=== PATIENT | female | born 1965 | race Caucasian/White ===

== ENCOUNTER 2020-07-06 06:34 | Emergency (ER) | payer BC, MEDICAID ==
[~2020-07-06] VITALS: Ht 165.1 cm; Wt 98.6 kg
[2020-07-06 07:51] LABS: ALANINE AMINOTRANSFERASE 21 U/L (12-78); ALBUMIN 3.5 G/DL (3.4-5.0); ALBUMIN/GLOBULIN RATIO 0.9 (1.1-1.5); ALKALINE PHOSPHATASE 72 IU/L (46-116); ANION GAP 7 (8-16); ASPARTATE AMINO TRANSFERASE 12 U/L (10-37); BILIRUBIN,TOTAL 0.5 MG/DL (0.1-1.0); BLOOD UREA NITROGEN 23 MG/DL (7-18); BUN/CREATININE RATIO 22.1 (6.6-38.0); CALCIUM 8.8 MG/DL (8.5-10.1); CHLORIDE 104 MMOL/L (99-107); CREATININE 1.04 MG/DL (0.40-0.90); GLUCOSE 94 MG/DL (70-104); LIPASE 136 U/L (73-393); SODIUM 140 MMOL/L (135-145); TOTAL PROTEIN 7.4 G/DL (6.4-8.2); eGFR 55 ML/MIN
[2020-07-06] MEDS ORDERED: morphine 4 MG/ML inj SYRINge IV ONE (07:55)
[2020-07-06] MEDS ORDERED: ondansetron/PF 4mg/2ml inj IV ONE (07:55)
[2020-07-06 08:07] LABS: BASOPHILS % (AUTO) 0.7 % (0-1); EOSINOPHILS # (AUTO) 0.2 X10'3 (0-0.9); HEMATOCRIT 35.9 % (35.0-45.0); HEMOGLOBIN 11.9 g/dl (12.0-16.0); LYMPHOCYTES # (AUTO) 1.3 X10'3 (1.1-4.8); LYMPHOCYTES % (AUTO) 21.3 % (21-51); MEAN CORPUSCULAR HEMOGLOBIN 29.4 PG (27.0-31.0); MEAN CORPUSCULAR HGB CONC 33.3 g/dL (33.0-36.5); MEAN CORPUSCULAR VOLUME 88.3 FL (78-98); MEAN PLATELET VOLUME 8.4 FL (7.4-10.4); MONOCYTES # (AUTO) 0.5 X10'3 (0-0.9); MONOCYTES % (AUTO) 8.1 % (2-12); NEUTROPHILS # (AUTO) 4.1 X10'3 (1.8-7.7); NEUTROPHILS % (AUTO) 66.9 % (42-75); PLATELET COUNT 226 X10'3 (140-440); RED BLOOD COUNT 4.06 X10'6 (4.20-5.60); RED CELL DISTRIBUTION WIDTH 15.2 % (11.5-14.5); WHITE BLOOD COUNT 6.2 X10'3 (4.5-11.0)
[2020-07-06 08:23] LABS: URINE HCG NEGATIVE (NEG)
[2020-07-06 08:30] LABS: CLARITY,URINE CLEAR (Clear); COLOR,URINE YELLOW (Yellow); GLUCOSE, URINE NEGATIVE (Neg); KETONES,URINE NEGATIVE (Neg); LEUKOCYTE ESTERASE ,URINE NEGATIVE (Neg); NITRITES, URINE NEGATIVE (Neg); OCCULT BLOOD,URINE NEGATIVE (Neg); PROTEIN,URINE NEGATIVE (Neg); UROBILINOGEN,URINE 0.2 E.U/dL (0.2-1.0)
[2020-07-06 08:31] LABS: UA COLLECTION TYPE CLN CATCH MIDSTREAM
[2020-07-06] MEDS ORDERED: LEVO500T89 PO (09:27)
[2020-07-06] MEDS ORDERED: METR-159 PO (09:27)
[2020-07-06 09:46] VITALS: BP 120/75
== END 2020-07-06 09:51 | disposition home or self-care (01) ==
LOC: ER 06:35
DX: K57.92 Diverticulitis of intestine, part unspecified, without perforation or abscess without bleeding (principal); I10 Essential (primary) hypertension; K21.9 Gastro-esophageal reflux disease without esophagitis; E03.9 Hypothyroidism, unspecified; Z90.710 Acquired absence of both cervix and uterus; Z98.51 Tubal ligation status; Z98.890 Other specified postprocedural states; Z88.0 Allergy status to penicillin; Z88.2 Allergy status to sulfonamides; Z79.899 Other long term (current) drug therapy
CPT/HCPCS: 36415; 74176; 80053; 81003; 81025; 83690; 85025; 96374; 96375; 99284; J2270; J2405

== ENCOUNTER 2023-04-17 17:53 | Emergency (ER) | payer BC ==
[~2023-04-17] VITALS: Ht 165.1 cm; Wt 88.1 kg
[~2023-04-17 17:53] MED LIST: ASPI81TA52 PO; FLUT16SP13 BOTHNARES; LACT1CAP65 PO; LEVO112T5 PO; LISI10TA27 PO; LISI20TA28 PO; SUPER C PO; VITA-288 PO
[2023-04-17 18:21] LABS: BASOPHILS # (AUTO) 0.1 X10'3 (0-0.2); BASOPHILS % (AUTO) 0.5 % (0-1); EOSINOPHILS # (AUTO) 0.4 X10'3 (0-0.9); EOSINOPHILS % (AUTO) 3.4 % (0-6); HEMATOCRIT 38.6 % (35.0-45.0); HEMOGLOBIN 12.8 g/dl (12.0-16.0); LYMPHOCYTES % (AUTO) 16.7 % (21-51); MEAN CORPUSCULAR HEMOGLOBIN 28.1 PG (27.0-31.0); MEAN CORPUSCULAR HGB CONC 33.3 g/dL (33.0-36.5); MEAN CORPUSCULAR VOLUME 84.5 FL (78-98); MONOCYTES # (AUTO) 1.1 X10'3 (0-0.9); MONOCYTES % (AUTO) 9.5 % (2-12); NEUTROPHILS # (AUTO) 8.2 X10'3 (1.8-7.7); NEUTROPHILS % (AUTO) 69.9 % (42-75); PLATELET COUNT 437 X10'3 (140-440); RED BLOOD COUNT 4.56 X10'6 (4.20-5.60); RED CELL DISTRIBUTION WIDTH 14.2 % (11.5-14.5); WHITE BLOOD COUNT 11.7 X10'3 (4.5-11.0)
[2023-04-17 18:26] LABS: URINE HCG NEGATIVE (NEG)
[2023-04-17 18:35] LABS: ALANINE AMINOTRANSFERASE 28 U/L (12-78); ALBUMIN 3.3 G/DL (3.4-5.0); ALBUMIN/GLOBULIN RATIO 0.7 (1.1-1.5); ALKALINE PHOSPHATASE 78 IU/L (46-116); ANION GAP 12 (8-16); ASPARTATE AMINO TRANSFERASE 19 U/L (10-37); BILIRUBIN,TOTAL 0.5 MG/DL (0.1-1.0); BLOOD UREA NITROGEN 11 MG/DL (7-18); BUN/CREATININE RATIO 10.6 (10.0-20.0); CALCIUM 9.6 MG/DL (8.5-10.1); CHLORIDE 98 MMOL/L (99-107); CREATININE 1.04 MG/DL (0.40-0.90); GLUCOSE 114 MG/DL (70-104); LIPASE 142 U/L (73-393); SODIUM 136 MMOL/L (135-145); TOTAL CARBON DIOXIDE 26.4 MMOL/L (24-32); TOTAL PROTEIN 8.1 G/DL (6.4-8.2); eGFR 54 ML/MIN
[2023-04-17 18:42] LABS: CLARITY,URINE CLEAR (Clear); COLOR,URINE YELLOW (Yellow); GLUCOSE, URINE NEGATIVE (Neg); KETONES,URINE NEGATIVE (Neg); LEUKOCYTE ESTERASE ,URINE NEGATIVE (Neg); NITRITES, URINE NEGATIVE (Neg); OCCULT BLOOD,URINE NEGATIVE (Neg); PH,URINE 6.5 (4.8-8.0); PROTEIN,URINE NEGATIVE (Neg); UROBILINOGEN,URINE 0.2 E.U/dL (0.2-1.0)
[2023-04-17 18:44] LABS: UA COLLECTION TYPE CLN CATCH MIDSTREAM
--- NOTE | 2023-04-17 19:00 | NUR ---
PT BROUGHT BACK TO TRIAGE TO [facility] VS D/T PT REPORTING FEELING SWEATY & LIGHTHEADED. ABD WOUND IS RED W/ SEROSANGOUS DRAINAGE.
[2023-04-17] MEDS ORDERED: rifampin 300mg capsule PO ONE (20:35)
[2023-04-17] MEDS ORDERED: VANCOMYCIN 1,500MG inj. 1,500 MG in normal saline 500ml IV soln 300 ML IV SCH (20:35)
[2023-04-17] MEDS ORDERED: rifampin 300mg capsule PO SCH (20:35)
[2023-04-17] MEDS ORDERED: normal saline 1000ML IV soln IVB ONE (20:35)
[2023-04-17] MEDS ORDERED: VANCOMYCIN 1,500MG inj. 1,500 MG in normal saline 500ml IV soln 300 ML IV ONE (20:36)
[2023-04-17] MEDS ORDERED: iohexol 300mg/ml 100ml inj. ONE (20:48)
--- NOTE | 2023-04-17 21:01 | NUR ---
assumed care from marv castro. pt moved from rm [address] at bedside.
[2023-04-17 23:59] VITALS: BP 104/67
== END 2023-04-17 23:52 | disposition home or self-care (01) ==
LOC: ER 17:54
DX: L76.34 Postprocedural seroma of skin and subcutaneous tissue following other procedure (principal); N73.2 Unspecified parametritis and pelvic cellulitis; I10 Essential (primary) hypertension; K21.9 Gastro-esophageal reflux disease without esophagitis; E03.9 Hypothyroidism, unspecified; Z88.8 Allergy status to other drugs, medicaments and biological substances; Z88.0 Allergy status to penicillin; Z88.2 Allergy status to sulfonamides; Z90.710 Acquired absence of both cervix and uterus; Z98.51 Tubal ligation status; Y83.8 Other surgical procedures as the cause of abnormal reaction of the patient, or of later complication, without mention of misadventure at the time of the procedure; Y92.89 Other specified places as the place of occurrence of the external cause
CPT/HCPCS: 36415; 74177; 80053; 81003; 81025; 83605; 83690; 84145; 85025; 87040; 96365; 96366; 99285; J3370; J3490; J7030; J7040; Q9967

== ENCOUNTER 2023-05-05 10:09 | Emergency (ER) | payer BC ==
[~2023-05-05] VITALS: Ht 162.6 cm; Wt 82.8 kg
[~2023-05-05 10:09] MED LIST changes: -ASPI81TA52 PO
[2023-05-05] MEDS ORDERED: CefTRIAXone 2gm/D5W 50ml BAG 50 ML IV ONE (10:35)
[2023-05-05] MEDS ORDERED: vancomycin/NS 1 GM ADD-VANTAGE 250 ML IV ONE (10:35)
[2023-05-05] MEDS ORDERED: normal saline 1000ML IV soln IV ONE (10:35)
[2023-05-05 10:55] LABS: URINE HCG NEGATIVE (NEG)
[2023-05-05] MEDS ORDERED: morphine 4 MG/ML inj SYRINge IV ONE (10:55)
[2023-05-05] MEDS ORDERED: ondansetron/PF 4mg/2ml inj IV ONE (10:55)
[2023-05-05 10:57] LABS: BASOPHILS % (AUTO) 0.6 % (0-1); EOSINOPHILS # (AUTO) 0.5 X10'3 (0-0.9); EOSINOPHILS % (AUTO) 7.6 % (0-6); HEMOGLOBIN 13.2 g/dl (12.0-16.0); LYMPHOCYTES # (AUTO) 1.5 X10'3 (1.1-4.8); LYMPHOCYTES % (AUTO) 24.4 % (21-51); MEAN CORPUSCULAR HGB CONC 32.9 g/dL (33.0-36.5); MEAN CORPUSCULAR VOLUME 85.1 FL (78-98); MEAN PLATELET VOLUME 8.5 FL (7.4-10.4); MONOCYTES # (AUTO) 0.5 X10'3 (0-0.9); MONOCYTES % (AUTO) 8.2 % (2-12); NEUTROPHILS # (AUTO) 3.5 X10'3 (1.8-7.7); NEUTROPHILS % (AUTO) 59.2 % (42-75); PLATELET COUNT 266 X10'3 (140-440); RED CELL DISTRIBUTION WIDTH 14.9 % (11.5-14.5)
[2023-05-05 11:00] LABS: CLARITY,URINE CLEAR (Clear); COLOR,URINE STRAW (Yellow); GLUCOSE, URINE NEGATIVE (Neg); KETONES,URINE NEGATIVE (Neg); LEUKOCYTE ESTERASE ,URINE NEGATIVE (Neg); NITRITES, URINE NEGATIVE (Neg); OCCULT BLOOD,URINE NEGATIVE (Neg); PH,URINE 6.5 (4.8-8.0); PROTEIN,URINE NEGATIVE (Neg); UROBILINOGEN,URINE 0.2 E.U/dL (0.2-1.0)
[2023-05-05 11:06] LABS: ALANINE AMINOTRANSFERASE 21 U/L (12-78); ALBUMIN 3.8 G/DL (3.4-5.0); ALBUMIN/GLOBULIN RATIO 0.9 (1.1-1.5); ALKALINE PHOSPHATASE 89 IU/L (46-116); ANION GAP 11 (8-16); ASPARTATE AMINO TRANSFERASE 14 U/L (10-37); BILIRUBIN,TOTAL 0.4 MG/DL (0.1-1.0); BLOOD UREA NITROGEN 13 MG/DL (7-18); BUN/CREATININE RATIO 13.8 (10.0-20.0); CALCIUM 9.4 MG/DL (8.5-10.1); CHLORIDE 103 MMOL/L (99-107); CREATININE 0.94 MG/DL (0.40-0.90); GLUCOSE 101 MG/DL (70-104); LIPASE 126 U/L (73-393); SODIUM 140 MMOL/L (135-145); TOTAL CARBON DIOXIDE 26.4 MMOL/L (24-32); TOTAL PROTEIN 8.2 G/DL (6.4-8.2); eGFR 61 ML/MIN
[2023-05-05 11:16] LABS: UA COLLECTION TYPE CLN CATCH MIDSTREAM
[2023-05-05 11:29] VITALS: BP 152/87
--- NOTE | 2023-05-05 12:00 | NUR ---
FAXED PT REFERRAL FOR WOUND CARE ALONG W/ PROVIDER NOTES AND DOCUMENTATION.
== END 2023-05-05 13:53 | disposition home or self-care (01) ==
LOC: ER 10:10
DX: T81.31XA Disruption of external operation (surgical) wound, not elsewhere classified, initial encounter (principal); I10 Essential (primary) hypertension; E03.9 Hypothyroidism, unspecified; Z87.19 Personal history of other diseases of the digestive system; Z90.710 Acquired absence of both cervix and uterus; Z98.51 Tubal ligation status; Z79.899 Other long term (current) drug therapy; Z88.8 Allergy status to other drugs, medicaments and biological substances; Z88.0 Allergy status to penicillin; Z88.1 Allergy status to other antibiotic agents; Z88.2 Allergy status to sulfonamides; Y83.8 Other surgical procedures as the cause of abnormal reaction of the patient, or of later complication, without mention of misadventure at the time of the procedure; Y92.89 Other specified places as the place of occurrence of the external cause
CPT/HCPCS: 36415; 80053; 81003; 81025; 83605; 83690; 84145; 85025; 87040; 87070; 96365; 96366; 96368; 96375; 99284; J0696; J2270; J2405; J3370; J7030; 87077; 87186

== ENCOUNTER 2023-06-12 05:31 | Day surgery (SDC) | payer BC ==
[2023-06-06 14:48] LABS: BILIRUBIN,URINE NEGATIVE (Neg); CLARITY,URINE CLEAR (Clear); COLOR,URINE YELLOW (Yellow); GLUCOSE, URINE NEGATIVE (Neg); KETONES,URINE NEGATIVE (Neg); LEUKOCYTE ESTERASE ,URINE SMALL (Neg); NITRITES, URINE NEGATIVE (Neg); OCCULT BLOOD,URINE NEGATIVE (Neg); PROTEIN,URINE NEGATIVE (Neg); UROBILINOGEN,URINE 0.2 E.U/dL (0.2-1.0)
[2023-06-06 14:49] LABS: UA COLLECTION TYPE CLN CATCH MIDSTREAM
[2023-06-06 14:51] LABS: BASOPHILS % (AUTO) 0.5 % (0-1); EOSINOPHILS # (AUTO) 0.2 X10'3 (0-0.9); EOSINOPHILS % (AUTO) 2.8 % (0-6); LYMPHOCYTES # (AUTO) 1.9 X10'3 (1.1-4.8); LYMPHOCYTES % (AUTO) 23.9 % (21-51); MEAN CORPUSCULAR HEMOGLOBIN 28.3 PG (27.0-31.0); MEAN CORPUSCULAR HGB CONC 33.1 g/dL (33.0-36.5); MEAN CORPUSCULAR VOLUME 85.6 FL (78-98); MEAN PLATELET VOLUME 8.1 FL (7.4-10.4); MONOCYTES # (AUTO) 0.5 X10'3 (0-0.9); MONOCYTES % (AUTO) 6.7 % (2-12); NEUTROPHILS # (AUTO) 5.3 X10'3 (1.8-7.7); NEUTROPHILS % (AUTO) 66.1 % (42-75); PRE OP HEMATOCRIT 39.4 % (35.0-45.0); PRE OP PLATELET COUNT 331 X10'3 (140-440); PRE OP WHITE BLOOD COUNT 8.1 10'3 (4.8-10.8); RED CELL DISTRIBUTION WIDTH 16.5 % (11.5-14.5)
[2023-06-06 14:56] LABS: BACTERIA,URINE 1+ /HPF (Neg); MUCUS STRANDS NONE SEEN /LPF (Neg); RBC,URINE 0-2 /HPF (0-2); SQUAMOUS EPITHELIAL CELL,UR MODERATE /LPF (FEW)
[2023-06-06 14:59] LABS: ALBUMIN 4.1 G/DL (3.4-5.0); ALKALINE PHOSPHATASE 100 IU/L (46-116); BLOOD UREA NITROGEN 15 MG/DL (7-18); BUN/CREATININE RATIO 13.3 (10.0-20.0); CALCIUM 9.6 MG/DL (8.5-10.1); CHLORIDE 102 MMOL/L (99-107); CREATININE 1.13 MG/DL (0.40-0.90); PRE OP ALT 22 U/L (30-65); PRE OP ANION GAP 8 (8-16); PRE OP AST 15 U/L (10-37); PRE OP BILIRUB, TOTAL 0.4 MG/DL (0.0-1.0); PRE OP GLUCOSE 103 MG/DL (70-104); PRE OP SODIUM 138 MMOL/L (135-145); TOTAL CARBON DIOXIDE 28.4 MMOL/L (24-32); TOTAL PROTEIN 8.4 G/DL (6.4-8.2); eGFR 49 ML/MIN
--- NOTE | 2023-06-11 13:00 | NUR ---
PT SURGERY CANCELLED D/T NEED OF OR TIME FOR EMERGENCY CASES, PT MADE AWARE OF SITUATION AND INSTRUCTED TO CALL DR'S OFFICE TO RESCHEDULE SX, PT NEEDED FRESH PACKING TO ABD WOUND - DONE PER STANDING OUTPATIENT WOUND CARE ORDERS AFTER SPEAKING WITH OUR OUTPT W/C SERVICES. PT TOLERATED WELL, MINIMAL BLEEDING NOTED, WOUND REDRESSED, PT DRESSED AND WALKED WITH TO VEHICLE FOR TRANSPORT HOME.
[~2023-06-12] VITALS: Ht 165.1 cm; Wt 90.2 kg
[2023-06-12] VITALS (13 sets, daily range): BP systolic 109–129; BP diastolic 67–89; PULSE 64–82; RESP 9–18; TEMP 98.5; O2SAT 94–100
[~2023-06-12 05:31] MED LIST changes: -FLUT16SP13 BOTHNARES; +GENTAMICIN IV ONE; -LACT1CAP65 PO; -LISI20TA28 PO; +LORA10TA7 PO; +NORMAL SALINE IV ONE; +OMEP40CA21 PO; +ROSU10TA28; -SUPER C PO; +TRIA15CR61 TOP; -VITA-288 PO; +clindamycin-Cleocin 900mg/D5W 50 ML IV ONE; +famotidine 20mg tablet PO ONE; +ringers solution, lacted 1,000 ML IV SCH
[2023-06-12 06:09] LABS: BILIRUBIN,URINE NEGATIVE (Neg); CLARITY,URINE CLOUDY (Clear); COLOR,URINE YELLOW (Yellow); GLUCOSE, URINE NEGATIVE (Neg); KETONES,URINE NEGATIVE (Neg); LEUKOCYTE ESTERASE ,URINE SMALL (Neg); NITRITES, URINE NEGATIVE (Neg); OCCULT BLOOD,URINE NEGATIVE (Neg); PROTEIN,URINE NEGATIVE (Neg); UROBILINOGEN,URINE 0.2 E.U/dL (0.2-1.0)
[2023-06-12 06:11] LABS: UA COLLECTION TYPE CLN CATCH MIDSTREAM
[2023-06-12 06:18] LABS: TRANSITIONAL EPI CELLS,URINE FEW /HPF; WBC CLUMPS,URINE FEW /HPF (NEGATIVE)
[2023-06-12 06:20] LABS: BACTERIA,URINE FEW /HPF (Neg)
[2023-06-12 06:21] LABS: HYALINE CASTS 0-3 /LPF (NEGATIVE); RBC,URINE 0-2 /HPF (0-2); SQUAMOUS EPITHELIAL CELL,UR MANY /LPF (FEW)
[2023-06-12] MEDS ORDERED: fentaNYL/PF 50MCG/1 ML 2ML syringe ONE ×2 (06:38→07:21)
[2023-06-12] MEDS ORDERED: midazolam 1 mg/ML 2ml injection ONE ×2 (06:40→07:21)
[2023-06-12] MEDS ORDERED: LIDOcaine 2% (20mg/ml) 5ml vial ONE (06:41)
[2023-06-12] MEDS ORDERED: propofol inj 20 ML IV ONE (06:41)
[2023-06-12] MEDS ORDERED: dexamethasone sod phosphate 4mg/ml inj. ONE (06:41)
[2023-06-12] MEDS ORDERED: ondansetron/PF 4mg/2ml inj ONE (06:42)
[2023-06-12] MEDS ORDERED: rocuronium 10mg/ml inj IV ONE (06:42)
[2023-06-12] MEDS ORDERED: morphine 4 MG/ML inj SYRINge IV PRN (06:50)
[2023-06-12] MEDS ORDERED: ondansetron/PF 4mg/2ml inj IV PRN (06:50)
[2023-06-12] MEDS ORDERED: hydrALAZINE 20mg/ml inj. IV PRN (06:50)
[2023-06-12] MEDS ORDERED: fentaNYL/PF 50MCG/1 ML 2ML syringe IV PRN (06:50)
[2023-06-12] MEDS ORDERED: morphine 2 MG/ML inj. syringe IV PRN (06:50)
[2023-06-12] MEDS ORDERED: ringers solution, lacted 1,000 ML IV SCH (06:50)
[2023-06-12] MEDS ORDERED: labetalol 20mg/4ml (5mg/ml) syringe IV PRN (06:50)
[2023-06-12] MEDS ORDERED: BUPIVAcaine/PF 2.5 mg/ml (0.25%) 30ml vial ONE (06:53)
[2023-06-12] MEDS ORDERED: sevoflurane 250ml liquid IH ONE (07:10)
[2023-06-12 07:18] LABS: BILIRUBIN,URINE NEGATIVE (Neg); CLARITY,URINE CLOUDY (Clear); COLOR,URINE STRAW (Yellow); GLUCOSE, URINE NEGATIVE (Neg); KETONES,URINE NEGATIVE (Neg); LEUKOCYTE ESTERASE ,URINE NEGATIVE (Neg); NITRITES, URINE NEGATIVE (Neg); OCCULT BLOOD,URINE NEGATIVE (Neg); PROTEIN,URINE NEGATIVE (Neg); UROBILINOGEN,URINE 0.2 E.U/dL (0.2-1.0)
[2023-06-12] MEDS ORDERED: neostigmine methylsulfate 1 MG/ML 10ml vial ONE (07:21)
[2023-06-12] MEDS ORDERED: glycopyrrolate 0.2mg/ml inj ONE (07:21)
[2023-06-12] MEDS ORDERED: labetalol 20mg/4ml (5mg/ml) syringe IV ONE (07:22)
[2023-06-12 07:32] LABS: UA COLLECTION TYPE CLN CATCH MIDSTREAM
[2023-06-12 07:37] LABS: SQUAMOUS EPITHELIAL CELL,UR MODERATE /LPF (FEW); TRANSITIONAL EPI CELLS,URINE FEW /HPF
[2023-06-12 07:38] LABS: BACTERIA,URINE FEW /HPF (Neg); RBC,URINE 0-2 /HPF (0-2)
[2023-06-12 07:40] LABS: HYALINE CASTS 0-3 /LPF (NEGATIVE)
[2023-06-12] MEDS ORDERED: BUPIVAcaine/PF 2.5 mg/ml (0.25%) 30ml vial IJ ONE (07:56)
[2023-06-12] MEDS: fentaNYL/PF 50MCG/1 ML 2ML syringe IV PRN ×2 (08:16→08:35)
--- NOTE | 2023-06-12 09:02 | NUR ---
Received from OR via [facility], accompanied by Anesthesiologist [email or web address] and report given by Anesthesiolgist. Pt sleepy but responsiveness. VS stable. Rcvd on 100% fio2. Abdominal pain 08/05 adminstered Fentanyl x2 50mcg pain brought to 04/05. Will continue to monitor pain. No n/v. PIV right wrist LR running at 100cc/hr.
[2023-06-12] MEDS ORDERED: HYDROcodone/acetaminophen 10/325mg tab PO ONE (09:35)
[2023-06-12] MEDS ORDERED: DOXYCYCLINE PO (10:00)
== END 2023-06-12 09:46 | disposition home or self-care (01) ==
LOC: PAS 05:31
PROVIDERS: ATTEND Surgery
DX: T81.89XA Other complications of procedures, not elsewhere classified, initial encounter (principal); E03.9 Hypothyroidism, unspecified; F32.A Depression, unspecified; K21.9 Gastro-esophageal reflux disease without esophagitis; M06.9 Rheumatoid arthritis, unspecified; E66.9 Obesity, unspecified; Z68.36 Body mass index [BMI] 36.0-36.9, adult; E06.3 Autoimmune thyroiditis; G47.30 Sleep apnea, unspecified; M19.90 Unspecified osteoarthritis, unspecified site; I12.9 Hypertensive chronic kidney disease with stage 1 through stage 4 chronic kidney disease, or unspecified chronic kidney disease; N18.9 Chronic kidney disease, unspecified; Z86.16 Personal history of COVID-19; Z88.0 Allergy status to penicillin; Z88.1 Allergy status to other antibiotic agents; Z88.2 Allergy status to sulfonamides; Z88.8 Allergy status to other drugs, medicaments and biological substances; Z98.51 Tubal ligation status; Z90.49 Acquired absence of other specified parts of digestive tract; Z90.710 Acquired absence of both cervix and uterus; Z98.890 Other specified postprocedural states; Z79.899 Other long term (current) drug therapy; Z80.3 Family history of malignant neoplasm of breast; Y83.8 Other surgical procedures as the cause of abnormal reaction of the patient, or of later complication, without mention of misadventure at the time of the procedure; Y92.89 Other specified places as the place of occurrence of the external cause
CPT/HCPCS: 13160; 36415; 80053; 81001; 82948; 85025; 87077; 87088; J1100; J1580; J2250; J2270; J2405; J2704; J2710; J3010; J3490; J7030; J7120; Z7506; Z7512; A4215; A4618; A4620; A6449; A7000

== ENCOUNTER 2024-10-04 12:40 | Inpatient (IN) | payer BC ==
[~2024-10-04] VITALS: Ht 162.6 cm; Wt 97.7 kg
[~2024-10-04 12:40] MED LIST changes: +DOXYCYCLINE PO; -GENTAMICIN IV ONE; -NORMAL SALINE IV ONE; -ROSU10TA28; +ROSU10TA72; -clindamycin-Cleocin 900mg/D5W 50 ML IV ONE; -famotidine 20mg tablet PO ONE; -ringers solution, lacted 1,000 ML IV SCH
[2024-10-04 16:08] LABS: BASOPHILS # (AUTO) 0.1 X10'3 (0-0.2); BASOPHILS % (AUTO) 0.6 % (0-1); EOSINOPHILS # (AUTO) 0.8 X10'3 (0-0.9); EOSINOPHILS % (AUTO) 7.8 % (0-6); HEMATOCRIT 39.7 % (35.0-45.0); HEMOGLOBIN 13.2 g/dl (12.0-16.0); LYMPHOCYTES # (AUTO) 2.8 X10'3 (1.1-4.8); LYMPHOCYTES % (AUTO) 27.9 % (21-51); MEAN CORPUSCULAR HEMOGLOBIN 28.2 PG (27.0-31.0); MEAN CORPUSCULAR HGB CONC 33.1 g/dL (33.0-36.5); MONOCYTES # (AUTO) 0.9 X10'3 (0-0.9); MONOCYTES % (AUTO) 9.4 % (2-12); NEUTROPHILS # (AUTO) 5.4 X10'3 (1.8-7.7); NEUTROPHILS % (AUTO) 54.3 % (42-75); PLATELET COUNT 251 X10'3 (140-440); RED BLOOD COUNT 4.67 X10'6 (4.20-5.60); RED CELL DISTRIBUTION WIDTH 15.4 % (11.5-14.5)
[2024-10-04 16:10] LABS: BILIRUBIN,URINE NEGATIVE (Neg); CLARITY,URINE CLEAR (Clear); COLOR,URINE YELLOW (Yellow); GLUCOSE, URINE NEGATIVE (Neg); KETONES,URINE NEGATIVE (Neg); LEUKOCYTE ESTERASE ,URINE NEGATIVE (Neg); NITRITES, URINE NEGATIVE (Neg); OCCULT BLOOD,URINE NEGATIVE (Neg); PROTEIN,URINE NEGATIVE (Neg); UROBILINOGEN,URINE 0.2 E.U/dL (0.2-1.0)
[2024-10-04] MEDS: normal saline 1000ML IV soln IV ONE (16:10)
[2024-10-04] MEDS: CefTRIAXone 2gm/D5W 50ml BAG 50 ML IV ONE (16:10)
[2024-10-04] MEDS: acetaminophen 1,000mg/100ml IV 100 ML IV ONE (16:10)
[2024-10-04] MEDS: VANCOMYCIN 1GM 200ML H20 (PEG) 200 ML IV ONE (16:10)
[2024-10-04 16:14] LABS: UA COLLECTION TYPE VOIDED
[2024-10-04 16:17] LABS: ALBUMIN 4.1 G/DL (3.4-5.0); ALKALINE PHOSPHATASE 91 IU/L (46-116); ANION GAP 8 (8-16); ASPARTATE AMINO TRANSFERASE 14 U/L (10-37); BILIRUBIN,TOTAL 0.4 MG/DL (0.1-1.0); BLOOD UREA NITROGEN 19 MG/DL (7-18); BUN/CREATININE RATIO 19.2 (10.0-20.0); CALCIUM 9.6 MG/DL (8.5-10.1); CHLORIDE 105 MMOL/L (99-107); CREATININE 0.99 MG/DL (0.40-0.90); GLUCOSE 95 MG/DL (70-104); MAGNESIUM 1.9 MG/DL (1.5-2.4); SODIUM 139 MMOL/L (135-145); TOTAL CARBON DIOXIDE 25.6 MMOL/L (24-32); TOTAL PROTEIN 8.3 G/DL (6.4-8.2); eCRCL 53 ML/MIN; eGFR 57 ML/MIN
[2024-10-04] MEDS: diphenhydrAMINE 50 mg/ml inj IV ONE (16:18)
[2024-10-04] MEDS ORDERED: iohexol 300mg/ml 100ml inj. ONE (16:23)
[2024-10-04 16:27] LABS: ALANINE AMINOTRANSFERASE 23 U/L (12-78)
[2024-10-04] MEDS ORDERED: magnesium sulf-water 2g/50mL 50 ML IV PRN (18:00)
[2024-10-04] MEDS ORDERED: magnesium Cl slow-release 64mg tablet PO PRN (18:00)
[2024-10-04] MEDS ORDERED: ondansetron/PF 4mg/2ml inj IV PRN (18:00)
[2024-10-04] MEDS ORDERED: potassium Cl 40MEQ/1/2NS 520ml 520 ML IV PRN (18:00)
[2024-10-04] MEDS ORDERED: mag hydrox/Alum hydrox/simeth 30ml oral suspension PO PRN (18:00)
[2024-10-04] MEDS ORDERED: HYDROcodone/acetaminophen 5mg/325mg tablet PO PRN (18:00)
[2024-10-04] MEDS ORDERED: HYDROcodone/acetaminophen 10/325mg tab PO PRN (18:00)
[2024-10-04] MEDS ORDERED: morphine 2 MG/ML inj. syringe IV PRN ×2 (18:00)
[2024-10-04] MEDS ORDERED: potassium Cl 20 mEq SR tablet PO PRN ×2 (18:00)
[2024-10-04] MEDS ORDERED: magnesium sulf-water 4G/100mL 100 ML IV PRN (18:00)
[2024-10-04] MEDS: normal saline 1000ml 1,000 ML IV SCH (18:06)
[2024-10-04] MEDS: pantoprazole 40mg Tablet.DR PO ONE (18:46)
[2024-10-04] MEDS: K and/or MAG REPLACEMENT MC SCH (19:48)
[2024-10-04] MEDS: docusate sod 100mg capsule PO SCH (19:48)
[2024-10-04] MEDS: lactobacillus rhamnosus 10,000 MMU CELLS/CAPSULE PO SCH (20:26)
[2024-10-04] MEDS: enoxaparin 40mg/0.4ml syringe SQ SCH (20:27)
[2024-10-04 20:38] LABS: URINE AMPHETAMINE SCREEN NEGATIVE (Neg); URINE BARBITUATE SCREEN NEGATIVE (Neg); URINE BENZODIAZEPINES SCREEN NEGATIVE (Neg); URINE CANNABINOID SCREEN NEGATIVE (Neg); URINE COCAINE SCREEN NEGATIVE (Neg); URINE METHADONE SCREEN NEGATIVE (Neg); URINE OPIATE SCREEN NEGATIVE (Neg); URINE PHENCYCLIDINE SCREEN NEGATIVE (Neg)
[2024-10-04] MEDS: ciprofloxacin lact 400MG/200ML 200 ML IV SCH (21:19)
[2024-10-05] VITALS (7 sets, daily range): BP systolic 144–167; BP diastolic 71–94; PULSE 71–89; RESP 16–21; TEMP 96.8–98.7; O2SAT 92–98
[2024-10-05 06:09] LABS: BASOPHILS % (AUTO) 0.4 % (0-1); EOSINOPHILS # (AUTO) 0.8 X10'3 (0-0.9); EOSINOPHILS % (AUTO) 11.3 % (0-6); HEMATOCRIT 35.2 % (35.0-45.0); HEMOGLOBIN 11.8 g/dl (12.0-16.0); LYMPHOCYTES % (AUTO) 13.3 % (21-51); MEAN CORPUSCULAR HEMOGLOBIN 28.5 PG (27.0-31.0); MEAN CORPUSCULAR HGB CONC 33.6 g/dL (33.0-36.5); MEAN CORPUSCULAR VOLUME 84.8 FL (78-98); MEAN PLATELET VOLUME 7.7 FL (7.4-10.4); MONOCYTES # (AUTO) 0.8 X10'3 (0-0.9); MONOCYTES % (AUTO) 10.9 % (2-12); NEUTROPHILS # (AUTO) 4.6 X10'3 (1.8-7.7); NEUTROPHILS % (AUTO) 64.1 % (42-75); PLATELET COUNT 186 X10'3 (140-440); RED BLOOD COUNT 4.16 X10'6 (4.20-5.60); RED CELL DISTRIBUTION WIDTH 15.5 % (11.5-14.5); WHITE BLOOD COUNT 7.3 X10'3 (4.5-11.0)
[2024-10-05 06:25] LABS: APTT 27 SECONDS (22-32); INR 1.1 INR
[2024-10-05 06:31] LABS: ALANINE AMINOTRANSFERASE 22 U/L (12-78); ALBUMIN 3.4 G/DL (3.4-5.0); ALBUMIN/GLOBULIN RATIO 0.9 (1.1-1.5); ALKALINE PHOSPHATASE 77 IU/L (46-116); ANION GAP 8 (8-16); ASPARTATE AMINO TRANSFERASE 14 U/L (10-37); BILIRUBIN,TOTAL 0.5 MG/DL (0.1-1.0); BLOOD UREA NITROGEN 15 MG/DL (7-18); BUN/CREATININE RATIO 17.2 (10.0-20.0); CALCIUM 9.3 MG/DL (8.5-10.1); CHLORIDE 105 MMOL/L (99-107); CREATININE 0.87 MG/DL (0.40-0.90); GLUCOSE 97 MG/DL (70-104); MAGNESIUM 1.9 MG/DL (1.5-2.4); POTASSIUM 4.2 MMOL/L (3.5-5.1); SODIUM 140 MMOL/L (135-145); TOTAL CARBON DIOXIDE 27.1 MMOL/L (24-32); TOTAL PROTEIN 7.2 G/DL (6.4-8.2); eCRCL 60 ML/MIN; eGFR 67 ML/MIN
[2024-10-05] MEDS: VANCOMYCIN 1GM 200ML H20 (PEG) 200 ML IV SCH (07:42)
[2024-10-05] MEDS: levoTHYROXINE 125mcg tablet PO SCH (07:46)
[2024-10-05] MEDS: acetaminophen 325mg tablet PO PRN (08:45)
[2024-10-05] MEDS: pantoprazole 40mg Tablet.DR PO SCH (08:46)
[2024-10-05] MEDS: lisinopril 10 MG tablet PO SCH (08:48)
[2024-10-05] MEDS: diphenhydrAMINE 25mg capsule PO PRN (19:15)
[2024-10-05] MEDS: VANCOMYCIN/WATER FOR INJ (PEG) 1.25GM/250 ML IVPB IV SCH (19:16)
[2024-10-05] MEDS: magnesium hydroxide 30ml (MOM) UD suspension PO PRN (20:29)
[2024-10-06 05:51] LABS: BASOPHILS % (AUTO) 0.7 % (0-1); EOSINOPHILS % (AUTO) 19.2 % (0-6); HEMATOCRIT 34.6 % (35.0-45.0); HEMOGLOBIN 11.6 g/dl (12.0-16.0); LYMPHOCYTES # (AUTO) 1.4 X10'3 (1.1-4.8); LYMPHOCYTES % (AUTO) 27.6 % (21-51); MEAN CORPUSCULAR HEMOGLOBIN 28.5 PG (27.0-31.0); MEAN CORPUSCULAR HGB CONC 33.5 g/dL (33.0-36.5); MEAN CORPUSCULAR VOLUME 85.1 FL (78-98); MEAN PLATELET VOLUME 7.7 FL (7.4-10.4); MONOCYTES # (AUTO) 0.5 X10'3 (0-0.9); MONOCYTES % (AUTO) 10.7 % (2-12); NEUTROPHILS # (AUTO) 2.1 X10'3 (1.8-7.7); NEUTROPHILS % (AUTO) 41.8 % (42-75); PLATELET COUNT 185 X10'3 (140-440); RED BLOOD COUNT 4.07 X10'6 (4.20-5.60); RED CELL DISTRIBUTION WIDTH 15.2 % (11.5-14.5); WHITE BLOOD COUNT 5.1 X10'3 (4.5-11.0)
[2024-10-06 06:00] VITALS: BP 161/89; PULSE 70; RESP 16; TEMP 97.2; O2SAT 97
[2024-10-06 06:01] LABS: APTT 27 SECONDS (22-32); INR 1.1 INR; PROTHROMBIN TIME 11.1 SECONDS (9.0-12.0)
[2024-10-06 06:07] LABS: ALANINE AMINOTRANSFERASE 22 U/L (12-78); ALBUMIN 3.4 G/DL (3.4-5.0); ALBUMIN/GLOBULIN RATIO 0.9 (1.1-1.5); ALKALINE PHOSPHATASE 71 IU/L (46-116); ANION GAP 7 (8-16); ASPARTATE AMINO TRANSFERASE 17 U/L (10-37); BILIRUBIN,TOTAL 0.4 MG/DL (0.1-1.0); BLOOD UREA NITROGEN 11 MG/DL (7-18); BUN/CREATININE RATIO 12.2 (10.0-20.0); CALCIUM 8.9 MG/DL (8.5-10.1); CHLORIDE 109 MMOL/L (99-107); GLUCOSE 97 MG/DL (70-104); PHOSPHORUS 3.5 MG/DL (2.3-4.5); POTASSIUM 4.4 MMOL/L (3.5-5.1); SODIUM 144 MMOL/L (135-145); TOTAL CARBON DIOXIDE 28.3 MMOL/L (24-32); TOTAL PROTEIN 7.3 G/DL (6.4-8.2); eCRCL 58 ML/MIN; eGFR 64 ML/MIN
[2024-10-06 10:00] VITALS: BP 153/87; PULSE 80; RESP 16; TEMP 96.8; O2SAT 99
[2024-10-06] MEDS ORDERED: LINE600T11 PO (11:11)
[2024-10-06 12:52] VITALS: RESP 18; O2SAT 98
[2024-10-06] MEDS ORDERED: LACT1CAP26 PO (12:55)
[2024-10-07] MEDS ORDERED: VANCOMYCIN LEVEL IV ONE (07:30)
== END 2024-10-06 15:37 | disposition home or self-care (01) | DRG 603 ==
LOC: ER 12:40 → ED HOLD 18:00 → ORTHO 4S 10-05 01:01
PROVIDERS: ADMIT Family Medicine; ATTEND Family Medicine
PROC: BW211ZZ Computerized Tomography (CT Scan) of Abdomen and Pelvis using Low Osmolar Contrast (ICD-10-PCS; principal; 2024-10-04)
DX: L03.311 Cellulitis of abdominal wall (principal); K21.9 Gastro-esophageal reflux disease without esophagitis; I10 Essential (primary) hypertension; E03.9 Hypothyroidism, unspecified; Z88.0 Allergy status to penicillin; Z88.1 Allergy status to other antibiotic agents; Z88.8 Allergy status to other drugs, medicaments and biological substances; Z98.1 Arthrodesis status; Z90.711 Acquired absence of uterus with remaining cervical stump
CPT/HCPCS: 36415; 71045; 74177; 80053; 80305; 81003; 83605; 83735; 84100; 84145; 85025; 85610; 85730; 87040; 87081; 93005; 93306; 96365; 96375; 99285; A6209; A6212; A6223; A6258; A6402; A6446; A6449; G0378; J0131; J0696; J0744; J1200; J1650; J3372; J7030; Q0163; Q9967